=== PATIENT | male | born 1995 | race African-American/Black ===

== ENCOUNTER 2018-07-24 16:06 | Emergency (ER) | payer BC, OTHER ==
[2018-07-24 16:20] VITALS: BP 126/93; PULSE 66; TEMP 98.4; BMI 23.1
--- NOTE | 2018-07-24 17:36 | PDOC ---
History of Present Illness - General Chief Complaint: Injury Stated Complaint: FALL Time Seen by Provider: 07/24/18 16:42 - History of Present Illness Initial Comments: 07/24/18 17:30 23-year-old male without comorbidities presents for evaluation of right wrist pain after slip and fall off a truck. No head injury postinjury nausea vomiting or visual changes only problem is right wrist pain. Past History - Past Medical History Allergies/Adverse Reactions: Allergies Allergy/AdvReac Type Severity Reaction Status Date / Time No Known Allergies Allergy Unverified 02/10/11 17:37 Home Medications: Ambulatory Orders NK [No Known Home Medication] 07/24/18 - Immunization History Td Vaccination: Yes TDAP Vaccination: Yes Immunization Up to Date: Yes - Suicide/Smoking/Psychosocial Hx Smoking Status: No Smoking History: Never smoked Years of Tobacco Use: 0 Have you smoked in the past 12 months: No Number of Cigarettes Smoked Daily: 0 Information on smoking cessation initiated: No Hx Alcohol Use: Yes Drug/Substance Use Hx: No Review of Systems - Review of Systems Musculoskeletal: Yes: Joint Pain *Physical Exam - Vital Signs Last Vital Signs Temp Pulse Resp BP Pulse Ox 98.4 F 66 18 126/93 100 07/24/18 16:18 07/24/18 16:18 07/24/18 16:18 07/24/18 16:18 07/24/18 16:18 - Physical Exam Comments: 07/24/18 17:31 Right wrist skin color and temperature are normal range of motion is limited. There is tenderness about the DRUJ and scapholunate joint. Unable to tolerate stability testing no gross sensory motor deficits neurovascular intact. ED Treatment Course - RADIOLOGY Radiology Studies Ordered: Category Date Time Status WRIST- RIGHT [RAD] Stat Radiology 07/24/18 16:45 Taken Medical Decision Making - Medical Decision Making 07/24/18 17:34 No evidence of acute fracture on x-ray. There is a widening of the scapholunate joint and DRUJ. This is a right wrist sprain cockup wrist splint follow-up with orthopedic surgery. Nonweightbearing on the right upper extremity until cleared *DC/Admit/Observation/Transfer Diagnosis at time of Disposition: Right wrist sprain - Discharge Dispostion Disposition: HOME Condition at time of disposition: Stable Decision to Admit order: No - Referrals Referrals: Black Sullivan DO [Staff Physician] - - Patient Instructions Printed Discharge Instructions: Wrist Sprain, DI for Wrist Sprain Additional Instructions: Follow-up with orthopedic surgery in one to 2 days without fail. The wrist splint at home sleep and it remove for hygiene Tylenol and Motrin as directed for pain. Return to the emergency room for worsening symptoms. - Post Discharge Activity
[2018-07-24] MEDS ORDERED: KETOROLAC TROMETHAMINE 60 MG/2 ML VIAL ONE (17:49)
== END 2018-07-24 18:00 | disposition home or self-care (01) ==
LOC: JERFT 16:06
PROC: 2W3CX1Z Immobilization of Right Lower Arm using Splint (ICD-10-PCS; principal; 2018-07-24)
DX: M25.531 Pain in right wrist (principal); V98.8XXA Other specified transport accidents, initial encounter; Y93.89 Activity, other specified; Y92.89 Other specified places as the place of occurrence of the external cause
CPT/HCPCS: 73110-TC-RT-FY; 99281-25

== ENCOUNTER 2023-04-30 07:16 | Emergency (ER) | payer BC, OTHER ==
[2023-04-30 07:35] VITALS: RESP 18; BMI 475.5
[2023-04-30] MEDS ORDERED: IBUPROFEN 600 MG TABLET (FP) PO ONE (08:09)
[2023-04-30] MEDS ORDERED: PSEUDOEPHEDRINE HCL 60 MG TABLET ONE (08:10)
[2023-04-30] MEDS: IBUPROFEN 600 MG TABLET (FP) PO ONE (08:12)
[2023-04-30] MEDS: PSEUDOEPHEDRINE HCL 30 MG TABLET PO ONE (08:12)
[2023-04-30 08:50] LABS: POTASSIUM 3.9 mmol/L (3.5-5.1)
[2023-04-30 08:51] LABS: BASO % 0.8 % (0-2.0); EOS % 0.6 % (0-4.5); HEMATOCRIT 44.3 % (35.4-49); HEMOGLOBIN 15.1 GM/dL (11.7-16.9); LYMPH % 30.3 % (8-40); MCH 29.7 pg (25.7-33.7); MCHC 34.1 g/dl (32.0-35.9); MEAN CELL VOLUME 87.1 fl (80-96); MONO % 28.2 % (3.8-10.2); NEUT % 40.1 % (42.8-82.8); PLATELET COUNT 160 10^3/uL (134-434); RBC 5.09 M/mm3 (4.00-5.60); WHITE BLOOD COUNT 3.2 K/mm3 (4.0-10.0)
[2023-04-30 08:52] LABS: CALCIUM 9.1 mg/dL (8.5-10.1)
[2023-04-30 08:53] LABS: ALBUMIN 4.1 g/dl (3.4-5.0); BLOOD UREA NITROGEN 13.3 mg/dL (7-18)
[2023-04-30 08:56] LABS: CREATININE 1.2 mg/dL (0.55-1.3)
[2023-04-30 08:57] LABS: BILIRUBIN,TOTAL 0.6 mg/dL (0.2-1)
[2023-04-30 08:58] LABS: TOT PROT 7.6 g/dl (6.4-8.2)
[2023-04-30 09:25] VITALS: BP 120/66; PULSE 86; TEMP 99.5
[2023-04-30 10:22] LABS: ANISOCYTOSIS 0; HELMET CELLS 0; HOWELL-JOLLY BODIES 0; MACROCYTOSIS 0; OVALOCYTE 0; ROULEAU 0; SICKELED CELLS 0; TARGET CELLS 0; TEAR DROP CELLS 0; TOXIC GRANULATION 0
== END 2023-04-30 09:44 | disposition home or self-care (01) ==
LOC: JER 07:16
DX: R07.2 Precordial pain (principal); R50.9 Fever, unspecified; R51.9 Headache, unspecified; J06.9 Acute upper respiratory infection, unspecified; Z20.822 Contact with and (suspected) exposure to COVID-19
CPT/HCPCS: 0241U-QW; 36415; 71046-TC-FY; 80053; 84484; 85025; 93005; 93010; 99285-25